=== PATIENT | female | born 1990 | race Caucasian/White ===

== ENCOUNTER 2024-10-08 18:53 | Inpatient (IN) | payer SELFPAY ==
[~2024-10-08] VITALS: Ht 170.2 cm; Wt 81.2 kg
[2024-10-08] MEDS: METHYLPREDNISOLONE SOD SUCC 125MG/2ML (ACT-O-VIAL) IV STA (19:10)
[2024-10-08] MEDS: MAGNESIUM 2 G PREMIX 50 ML IV ONE (19:10)
[2024-10-08] MEDS: SODIUM CHLORIDE 0.9% 1,000 ML IV ONE (19:10)
[2024-10-08] MEDS: ALBUTEROL (0.083%) 2.5MG/3ML NEB HHN SCH (19:14)
[2024-10-08 19:18] VITALS: PULSE 122; RESP 20; O2SAT 100
[2024-10-08] MEDS: IPRATROPIUM BROMIDE (0.02%) 0.5MG/2.5ML NEB HHN STA (19:18)
[2024-10-08 19:26] LABS: BASOPHILS % 0.9 % (0.0-2.0); EOSINOPHILS % 2.2 % (0.0-5.0); HEMOGLOBIN. 14.4 g/dL (12.0-16.0); LYMPHOCYTES % 45.5 % (20.0-50.0); MEAN CORPUSCULAR HEMOGLOBIN 30.2 pg (28.0-32.0); MEAN CORPUSCULAR HGB CONC 33.5 g/dL (31.0-37.0); MEAN PLATELET VOLUME 8.1 fl (7.4-10.4); MONOCYTES % 4.9 % (2.0-8.0); NEUTROPHILS % 46.5 % (40.0-76.0); PLATELET 337 x1000/uL (130-400); RED BLOOD CELL COUNT 4.78 mill/uL (4.2-5.4); RED CELL DISTRIBUTION WIDTH 13.2 % (11.6-14.6); WHITE BLOOD COUNT 12.8 x1000/uL (4.5-11.0)
[2024-10-08 19:31] LABS: CHLORIDE 102 mEq/L (98-107); POTASSIUM 3.7 mEq/L (3.5-5.1); SODIUM 138 mEq/L (136-145)
[2024-10-08 19:32] LABS: CARBON DIOXIDE 26 mEq/L (21-32)
[2024-10-08 19:33] LABS: CALCIUM 9.5 mg/dL (8.7-10.4)
[2024-10-08 19:36] LABS: HCG SCREEN NEGATIVE; PARTIAL THROMBOPLASTIN TIME 26.1 sec (23.4-31.0); PROTHROMBIN TIME 10.6 sec (9.6-11.0)
[2024-10-08 19:37] LABS: GLUCOSE 171 mg/dL (70-105); UREA NITROGEN BLOOD 10 mg/dL (9-23)
[2024-10-08 19:46] LABS: TROPONIN I HIGH SENSITIVITY < 4 ng/L (3.0-34)
[2024-10-08 20:37] LABS: BG BASE EXCESS 0.3 mmol/L (-2.0-3.0); BG CARBOXYHEMOGLOBIN 1.3 % (0.5-1.5); BG DEOXYHEMOGLOBIN 1.1 % (0.0-5.0); BG FRACTION INSPIRED OXYGEN 90; BG HCO3 ACT 27.2 mmol/L (21.0-28.0); BG METHEMOGLOBIN 0.3 % (0.5-1.5); BG OXYGEN SATURATION 98.9 % (94.0-98.0); BG OXYHEMOGLOBIN 97.3 % (94.0-98.0); BG PCO2 53.2 mmHg (32.0-45.0); BG PH 7.326 (7.350-7.450); BG PO2 145.1 mmHg (83.0-108.0); BG SAMPLE SITE RIGHT RADIAL; BG TOTAL HEMOGLOBIN 13.6 g/dL (12.0-16.0); BG VENT MODE MASK - NRB
[2024-10-08 20:43] LABS: LACTIC ACID 2.3 mmol/L (0.4-2.0)
[2024-10-08 21:11] LABS: INFLUENZA TYPE A Presumptive Negative (Pres. Neg.); INFLUENZA TYPE B Presumptive Negative (Pres. Neg.)
[2024-10-08] MEDS ORDERED: DOCUSATE SODIUM 100MG CAPSULE PO PRN (21:15)
[2024-10-08] MEDS ORDERED: MAGNESIUM/ALUMINUM HYDROXIDE/SIMETHICONE 30ML UDC PO PRN (21:15)
[2024-10-08] MEDS ORDERED: CLONIDINE 0.1MG TABLET PO PRN (21:15)
[2024-10-08] MEDS ORDERED: ONDANSETRON HCL 4MG/2ML INJ IV PRN (21:15)
[2024-10-08] MEDS ORDERED: ACETAMINOPHEN 325MG TABLET PO PRN (21:15)
[2024-10-08] MEDS ORDERED: POTASSIUM CHLORIDE 20MEQ TABLET SR PO PRN (21:15)
[2024-10-08] MEDS ORDERED: IPRATROPIUM/ALBUTEROL 0.5-3(2.5)MG/3ML NEB HHN PRN ×2 (21:15)
[2024-10-08 22:58] VITALS: BP 124/80; PULSE 95; RESP 18; TEMP 37.1; O2SAT 95
[2024-10-08] MEDS: METHYLPREDNISOLONE SOD SUCC 125MG/2ML (ACT-O-VIAL) IV SCH (23:51)
[2024-10-09] VITALS (9 sets, daily range): BP systolic 97–128; BP diastolic 64–82; PULSE 75–101; RESP 12–26; TEMP 36.9–37.2; O2SAT 92–99
[2024-10-09] MEDS: HYDROCODONE/ACETAMINOPHEN 5/325MG TABLET PO PRN (04:33)
[2024-10-09 06:03] LABS: CARBON DIOXIDE 26 mEq/L (21-32); CHLORIDE 103 mEq/L (98-107); SODIUM 139 mEq/L (136-145)
[2024-10-09 06:04] LABS: CALCIUM 8.8 mg/dL (8.7-10.4)
[2024-10-09 06:06] LABS: TROPONIN I HIGH SENSITIVITY 23 ng/L (3.0-34)
[2024-10-09 06:09] LABS: CREATININE 0.7 mg/dL (0.6-1.0); GLUCOSE 128 mg/dL (70-105); UREA NITROGEN BLOOD 8 mg/dL (9-23)
[2024-10-09 06:11] LABS: PHOSPHORUS 1.2 mg/dL (2.5-4.9)
[2024-10-09 06:15] LABS: HEMATOCRIT. 40.4 % (36.0-48.0); HEMOGLOBIN. 13.4 g/dL (12.0-16.0); MEAN CORPUSCULAR HGB CONC 33.1 g/dL (31.0-37.0); MEAN CORPUSCULAR VOLUME 87.6 fL (81.0-99.0); MEAN PLATELET VOLUME 8.3 fl (7.4-10.4); PLATELET 268 x1000/uL (130-400); RED BLOOD CELL COUNT 4.61 mill/uL (4.2-5.4); RED CELL DISTRIBUTION WIDTH 13.2 % (11.6-14.6); WHITE BLOOD COUNT 6.9 x1000/uL (4.5-11.0)
[2024-10-09 06:23] LABS: HEPATITIS B SURFACE ANTIGEN NEGATIVE (Negative)
[2024-10-09 06:44] LABS: HEPATITIS C AB NON REACTIVE (Neg) (Negative)
[2024-10-09 06:58] LABS: DIFFERENTIAL COMMENT 1
[2024-10-09] MEDS ORDERED: ALBU90AE IH (07:24)
[2024-10-09] MEDS ORDERED: NALOXONE HCL 0.4MG/ML VIAL IV PRN (07:45)
[2024-10-09] MEDS: MORPHINE SULFATE 4 MG/ML INJ (FOR IV/IM USE) IV NR (07:59)
[2024-10-09] MEDS: ENOXAPARIN 40MG/0.4ML SYR SUBCUT SCH (08:05)
[2024-10-09 10:38] LABS: *AMPHETAMINES SCREEN URINE PRESUMPTIVE POSITIVE (NEGATIVE); *BARBITURATES SCREEN URINE NEGATIVE (NEGATIVE); *BENZODIAZEPINES SCREEN URINE NEGATIVE (NEGATIVE); *COCAINE SCREEN URINE NEGATIVE (NEGATIVE); CANNABINOID URINE SCREEN NEGATIVE (NEGATIVE); ECSTASY MDMA SCREEN URINE NEGATIVE (NEGATIVE); METHADONE URINE SCREEN NEGATIVE (NEGATIVE); OPIATES URINE SCREEN PRESUMPTIVE POSITIVE (NEGATIVE); PHENCYCLIDINE URINE SCREEN NEGATIVE (NEGATIVE)
[2024-10-09] MEDS ORDERED: HYDROMORPHONE HCL/PF 2MG/ML INJ IV PRN (13:00)
[2024-10-09] MEDS ORDERED: HYDROCODONE/ACETAMINOPHEN 5/325MG TABLET PO PRN (13:00)
[2024-10-09] MEDS: LIDOCAINE 5% PATCH TOP SCH (13:44)
[2024-10-09] MEDS: LORATADINE 10MG TABLET PO SCH (13:45)
[2024-10-09] MEDS: FAMOTIDINE 20MG TABLET PO SCH (13:45)
[2024-10-09] MEDS ORDERED: IPRATROPIUM/ALBUTEROL 0.5-3(2.5)MG/3ML NEB HHN SCH (16:00)
[2024-10-09] MEDS ORDERED: MONTELUKAST SODIUM 10MG TABLET PO SCH (17:00)
[2024-10-09 21:44] LABS: PLATELET ESTIMATE NORMAL
== END 2024-10-09 16:15 | disposition left against medical advice (07) | DRG 133 ==
LOC: ER 18:53 → 5EST 20:28 → EDBEDREQ 20:30 → EDBEDREQTM 20:30 → ENRESERV 22:35
PROVIDERS: ADMIT Family Medicine Adult Medicine; ATTEND Family Medicine Adult Medicine
PROC: 5A12012 Performance of Cardiac Output, Single, Manual (ICD-10-PCS; principal; 2024-10-08)
DX: J96.01 Acute respiratory failure with hypoxia (principal); D72.10 Eosinophilia, unspecified; J45.901 Unspecified asthma with (acute) exacerbation; M96.A3 Multiple fractures of ribs associated with chest compression and cardiopulmonary resuscitation; K21.9 Gastro-esophageal reflux disease without esophagitis; Z20.822 Contact with and (suspected) exposure to COVID-19; J32.9 Chronic sinusitis, unspecified; Z88.0 Allergy status to penicillin
CPT/HCPCS: 36415; 36600; 71045; 71250; 80048; 80305; 82375; 82805; 83605; 83735; 83880; 84100; 84484; 84703; 85025; 86705; 87340; 87426; 87804; 93005; 94640; 94664; 99285; J1650; J2270; J2919; J3475; J7030